=== PATIENT | female | born 1970 | race Caucasian/White ===

== ENCOUNTER 2017-02-13 07:41 | Day surgery (SDC) | payer OTHER ==
[2017-02-13] VITALS (15 sets, daily range): BP systolic 100–120; BP diastolic 48–57; PULSE 55–75; RESP 13–17; Ht 165.1 cm; Wt 88.5 kg
[~2017-02-13] VITALS: Ht 165.1 cm; Wt 88.5 kg
[~2017-02-13 07:41] MED LIST: ALBU8.5H3; NAPROXEN
[2017-02-13] MEDS ORDERED: CEFAZOLIN 2 GM/50 ML (PMX) 50 ML IVPB ONE (08:00)
[2017-02-13] MEDS ORDERED: SOD CHLORIDE 0.9% 1,000 ML IV SCH (08:00)
[2017-02-13] MEDS ORDERED: PEN500 ORAL (08:16)
[2017-02-13] MEDS ORDERED: IBUP800T25 ORAL (08:16)
[2017-02-13] MEDS ORDERED: ADV25050 INHALATION (08:16)
[2017-02-13] MEDS ORDERED: PROPOFOL 20 ML ONE (10:15)
[2017-02-13] MEDS ORDERED: MEPERIDINE 100 MG INJ ONE (10:15)
[2017-02-13] MEDS ORDERED: LIDOCAINE 2% (SDV) 5 ML INJ ONE (10:15)
[2017-02-13] MEDS ORDERED: CEFAZOLIN 1 GM INJ ONE (10:16)
[2017-02-13] MEDS ORDERED: ONDANSETRON 4 MG INJ ONE (10:16)
[2017-02-13] MEDS ORDERED: METOCLOPRAMIDE 10 MG INJ ONE (10:16)
[2017-02-13] MEDS ORDERED: BUPIVACAINE 0.25% (MPF) 30 ML INJ ONE (10:19)
[2017-02-13] MEDS ORDERED: BUPIVACAINE 0.25%/EPI (SDV) 30 ML INJ ONE (10:19)
[2017-02-13] MEDS ORDERED: LIDOCAINE 2%/EPI 30 ML INJ ONE (10:19)
[2017-02-13] MEDS ORDERED: LIDOCAINE 1% (STERILE-PAK) 30 ML INJ ONE (10:19)
[2017-02-13] MEDS ORDERED: BACITRACIN/POLYMYXIN 28.35 GM OINT TOP ONE (11:06)
--- NOTE | 2017-02-13 11:14 | OPR ---
Date/Time of Note Date/Time of Note DATE: 02/13/17 TIME: 11:12 Operative Report Procedure Date: Feb 13, 2017 Preoperative Diagnosis right scalp mass Postoperative Diagnosis same Operation Performed 1. excision of right scalp mass 3 cm incision and 3 cm mass 2. localized adjacent tissue transfer with the use of skin flaps 3. therapeutic injection of subcutaneous marcaine Surgeon: Dorothy GIRARD Specimens right posterior scalp mass Indications This is a 46-year-old female who requires surgical excision of her scalp mass. Risks alternatives benefits and percent were discussed the patient. Patient expresses understanding and consents to the operation. Procedure Description Patient is taken to the OR and prepped and draped in usual sterile fashion. Surgical timeout was performed. IV antibiotics are given. Transverse incision was made over the right posterior scalp mass with a 15 blade. Dissection cautery was carried down to the mass. The mass and capsule is excised en bloc. There is good hemostasis. Due to the tissue defect localized patient is transferred to the skin flaps were performed. Multilayer closure with interrupted 3-0 Vicryl and running 3-0 Vicryl. Therapeutic subcutaneous Marcaine is injected into the incision site. Dry dressings were applied after antibiotic ointment. Dorothy GIRARD Feb 13, 2017 11:14
[2017-02-13] MEDS ORDERED: ONDANSETRON 4 MG INJ IV PRN (11:30)
[2017-02-13] MEDS ORDERED: METOCLOPRAMIDE 10 MG INJ IV PRN (11:30)
[2017-02-13] MEDS ORDERED: ACETAMINOPHEN/CODEINE #3 TAB PO ONE (11:30)
[2017-02-13] MEDS ORDERED: EPHEDrine SULFATE 50 MG/5 ML SYG IV PRN (11:30)
[2017-02-13] MEDS ORDERED: MIDAZOLAM 1 MG/ML 2 ML INJ IV PRN (11:30)
[2017-02-13] MEDS ORDERED: DIPHENHYDRAMINE 50 MG INJ IV PRN (11:30)
[2017-02-13] MEDS ORDERED: OXYCODONE/ACETAMINOPHEN (5/325) TAB PO PRN ×2 (11:30)
[2017-02-13] MEDS ORDERED: MEPERIDINE 25 MG INJ IV PRN (11:30)
[2017-02-13] MEDS ORDERED: ALBUTEROL 0.083% (NEB) 2.5 MG/3 ML AMP HHN PRN (11:30)
[2017-02-13] MEDS ORDERED: FENTAnyl 50 MCG/ML VIAL IV PRN ×3 (11:30)
[2017-02-13] MEDS ORDERED: HYDROmorphONE (0.2 MG/ML) 10ML SYG IV PRN ×3 (11:30)
[2017-02-13] MEDS ORDERED: LABETALOL HCL 20MG INJ IV PRN (11:30)
== END 2017-02-13 13:20 | disposition home or self-care (01) ==
LOC: SDS 07:41
PROVIDERS: ATTEND Surgery
DX: L72.11 Pilar cyst (principal); J45.909 Unspecified asthma, uncomplicated
CPT/HCPCS: 14020; 88307; J0690; J2175; J2405; J2765; Z7512; Z7610